=== PATIENT | male | born 1960 | race Asian ===

== ENCOUNTER 2016-06-07 11:58 | Day surgery (SDC) | payer OTHER ==
[~2016-06-07] VITALS: Ht 175.3 cm; Wt 79.0 kg
[2016-06-07 12:56] VITALS: Ht 175.3 cm; Wt 79.0 kg
[2016-06-07] MEDS ORDERED: ALBU18HF INHALATION (13:08)
[2016-06-07] MEDS ORDERED: MONT10TA24 PO (13:08)
[2016-06-07] MEDS ORDERED: LOSA25TA5 PO (13:08)
[2016-06-07 13:40] VITALS: BP 116/79; PULSE 57; RESP 14
[2016-06-07] MEDS ORDERED: MIDAZOLAM 1 MG/ML 2 ML INJ ONE (14:42)
[2016-06-07] MEDS ORDERED: PROPOFOL 20 ML ONE (14:42)
[2016-06-07] MEDS ORDERED: FENTAnyl 50 MCG/ML VIAL ONE (14:43)
[2016-06-07 16:02] VITALS: BP 112/77; PULSE 54; RESP 18
--- NOTE | 2016-06-09 10:46 | GILP ---
DATE OF PROCEDURE: PROCEDURE: Colonoscopy to cecum. BRIEF HISTORY AND INDICATION: The patient is being evaluated for colorectal cancer screening. PREMEDICATION: Monitored anesthesia care by anesthesiologist. SURGEON: Catarina Vivas MD. INSTRUMENT USED: Olympus colonoscope. PREPARATION: Adequate. TECHNIQUE: After informed consent, with the patient/relatives understanding the procedure, its indic ations potential risks and complications, including but not limited to: allergic reaction, bleeding, perforation, infection, missed lesions and after all pertinent questions were answered to the patie nt's satisfaction, the patient/relatives signed the witnessed informed consent. Following this, premedication was administered slowly IV push by under careful cardiovascular and re spiratory monitoring with pulse oximetry, automatic blood pressure and miller supervisor. Once the sedativ e effect was achieved, the patient was placed in the left lateral decubitus position, digital rectal examination was performed. The colonoscope was then introduced and advanced under visual control th roughout all segments of the colon including: the rectum, sigmoid, descending colon, splenic flexure , transverse colon, hepatic flexure, ascending colon and finally reaching the cecum which was clearl y identified by transillumination, finger indentation and the ileocecal valve. Careful examination o f the mucosa of the lower gastrointestinal tract both on insertion as well as withdrawal of the inst rument disclosed the following findings: Rectal Examination: No evidence of perirectal disease, no masses. Colonic Mucosa: The colonic mucosa is entirely unremarkable throughout. The ileocecal valve was cl early identified and appears to be unremarkable. The instrument was withdrawn, reexamining the muco sa in detail. No additional abnormalities were noted with the exception of moderate size internal h emorrhoids. The instrument was then withdrawn, the patient tolerated the procedure well and was transferred out of the Endoscopy Suite awake and in good condition to continue recovery under observation. IMPRESSION: Moderate sized internal hemorrhoids, otherwise normal colonoscopy to cecum. PLAN: The patient will follow up as an outpatient. Annual Hemoccult stool testing is recommended. Screening colonoscopy in 10 years is recommended. Dictated By: CATARINA VIVAS MS/MILO Conf#: [id number] DID#: [id number]
== END 2016-06-08 16:21 | disposition home or self-care (01) ==
LOC: GIL 11:58
PROVIDERS: ATTEND Internal Medicine Gastroenterology
DX: Z12.11 Encounter for screening for malignant neoplasm of colon (principal); K64.8 Other hemorrhoids; I10 Essential (primary) hypertension; J45.909 Unspecified asthma, uncomplicated
CPT/HCPCS: 45378; J2250; J3010; Z7610